=== PATIENT | female | born 1930 | race Hispanic/Latino ===

== ENCOUNTER 2018-03-18 18:45 | Emergency (ER) | payer OTHER, MEDICARE ==
[~2018-03-18 18:45] MED LIST: LEVO25TA54 PO; TRAM50TA4 PO
[2018-03-18] MEDS ORDERED: ACETAMINOPHEN-CODEINE ELIXIR 5 ML UDCUP ONE (19:26)
[2018-03-18] MEDS ORDERED: OCTYL 2-CYANOACRYLATE 1 EACH TP ONE (19:52)
== END 2018-03-18 20:04 | disposition home or self-care (01) ==
LOC: EDH 18:45
DX: S50.01XA Contusion of right elbow, initial encounter (principal); S60.811A Abrasion of right wrist, initial encounter; S80.211A Abrasion, right knee, initial encounter; E07.9 Disorder of thyroid, unspecified; W18.39XA Other fall on same level, initial encounter; Y93.01 Activity, walking, marching and hiking; Y92.89 Other specified places as the place of occurrence of the external cause; Y99.8 Other external cause status
CPT/HCPCS: 71045; 73060; 73090; 73562; 93005